=== PATIENT | female | born 1970 | race Caucasian/White ===

== ENCOUNTER → 2016-11-04 | Outpatient (CLI) | payer OTHER | LOC: KOH-I 14:49 | DX: M54.5 Low back pain (principal); M47.816 Spondylosis without myelopathy or radiculopathy, lumbar region | CPT/HCPCS: 72110 ==

== ENCOUNTER 2020-11-08 10:36 | Emergency (ER) | payer OTHER ==
[2020-11-08 12:33] LABS: HEMOGLOBIN 13.5 gm/dl (12.3-15.3); RED BLOOD COUNT 5.03 M/UL (4.00-5.10); WHITE BLOOD COUNT 6.1 K/UL (4.5-11.0)
[2020-11-08 12:57] LABS: BUN/CREATININE RATIO 15 (0-10)
== END 2020-11-08 14:12 | disposition home or self-care (01) ==
LOC: ER1 10:36
PROVIDERS: Emergency Medicine
DX: U07.1 COVID-19 (principal); I10 Essential (primary) hypertension; E11.9 Type 2 diabetes mellitus without complications; Z79.4 Long term (current) use of insulin
CPT/HCPCS: 71045; 80053; 82550; 82553; 83874; 84484; 85025; 93005; 96374; 96375; 99284; J1885; J2405; J7030; M0239

== ENCOUNTER 2022-02-25 12:40 | Emergency (ER) | payer SELFPAY ==
[2022-02-25 14:19] LABS: HEMOGLOBIN 13.6 gm/dl (12.3-15.3); RED BLOOD COUNT 5.23 M/UL (4.00-5.10); WHITE BLOOD COUNT 9.3 K/UL (4.5-11.0)
[2022-02-25 14:43] LABS: BUN/CREATININE RATIO 16 (0-10)
[2022-02-25] MEDS ORDERED: TORADOL 10 MG T10 MG PO (16:09)
== END 2022-02-25 17:29 | disposition home or self-care (01) ==
LOC: ER1 12:40
PROVIDERS: Nurse Practitioner
DX: K80.20 Calculus of gallbladder without cholecystitis without obstruction (principal); E11.9 Type 2 diabetes mellitus without complications; I10 Essential (primary) hypertension; Z88.0 Allergy status to penicillin
CPT/HCPCS: 71045; 80053; 81001; 82550; 82553; 83605; 83690; 84484; 85025; 87086; 93005; 96374; 96375; 99284; J1885; J2270; J2405; Q9967

== ENCOUNTER → 2022-03-28 | Day surgery (SDC) | payer OTHER ==
[~2022-03-28] MED LIST: ATENOLOL25 MG PO; GABAPENTIN600 MG PO; HYDROCODON-ACE1 EAC4 PO; LEVOTHYROXINE50 MCG PO; LISINOPRIL20 MG PO; MELOXICAM15 MG PO; METFORMIN HCL1000 MG PO; NOVOLIN N100 UNIT/1 SQ; TORADOL 10 MG T10 MG PO; ZOLOFT50 MG PO
[2022-03-28 09:31] LABS: BUN/CREATININE RATIO 20 (0-10)
== END | disposition home or self-care (01) ==
LOC: OR 08:24
PROVIDERS: Surgery
DX: K80.10 Calculus of gallbladder with chronic cholecystitis without obstruction (principal); E11.65 Type 2 diabetes mellitus with hyperglycemia; E03.9 Hypothyroidism, unspecified; Z88.2 Allergy status to sulfonamides; Z79.4 Long term (current) use of insulin; Z79.899 Other long term (current) drug therapy
CPT/HCPCS: 36415; 80048; 82962; C1729; J1100; J1885; J2001; J2250; J2405; J2704; J2710; J3010